=== PATIENT | female | born 1965 | race Caucasian/White ===

== ENCOUNTER 2018-08-01 15:02 | Emergency (ER) | payer MEDICARE, MEDICAID ==
[~2018-08-01] VITALS: Ht 154.9 cm; Wt 113.4 kg
[~2018-08-01 15:02] MED LIST: ABILIFY15 MG; ACID REDUCER75 MG PO; ADVAIR 100-501 EACH; ALBUTEROL NEB; AMBIEN 10 MG TA10 MG; AMBIEN 10 MG TA10 MG PO; BONIVA150 MG PO; BUPROPION XL150 MG PO; BUSPAR30 MG; BUSPAR30 MG PO; BUSPIRONE PO; CALCIUM + VIT1 EACH; CELEXA 20 MG TA20 MG PO; CELEXA40 MG; CELEXA40 MG PO; CIPRO500 MG PO; CIPROFLOXACIN500 M1 PO; CYMBALTA30 MG; DAYPRO600 MG PO; DILAUDID 2 MG TA2 MG PO; ENDOCET 5-3251 EACH PO; EVISTA; FLONASE; HYDROCODON-ACE1 EAC7 PO; IBUPROFEN 800800 M1 PO; KEFLEX500 MG PO; KEPPRA 500 MG500 M1 PO; KEPPRA XR750 MG PO; KEPPRA250 MG PO; LAMICTAL XR50 MG; LITHIUM CARBON300 M3 PO; LYRICA 75 MG CA75 MG; LYRICA100 MG; MIDODRINE HCL 55 M1 PO; MORPHINE SULFAT30 M4 PO; MS CONTIN 30 MG30 MG; NEURONTIN600 MG PO; NORCO 5-325 TA1 EACH PO; OPANA ER10 MG; ORADENT 0.1% DEN5 G1; OXCARBAZEPINE300 M1 PO; OXCARBAZEPINE300 MG; OXCARBAZEPINE600 MG; OXYCONTIN10 M1 PO; OYSTER SHELL C1 EA14 PO; PARAFON FORTE500 M2 PO; PERCOCET 10-321 EACH; PERCOCET 10-321 EACH PO; PERCOCET PO; PREDNISONE 20 M20 M1; PRILOSEC 20 MG20 MG; PROAIR HFA8.5 GM; RISPERDAL 1 MG T1 MG; RISPERDAL4 MG PO; ROXICODONE15 MG; SULFACETAMIDE 115 M1; TIZANIDINE HCL4 MG; TOPROL XL25 MG PO; TRIAMCINOLONE10 G1; TRILEPTAL 300300 MG; VENTOLIN17 GM; VISTARIL 25 MG25 M1; WELLBUTRIN SR150 MG PO; WELLBUTRIN XL150 M1 PO; WELLBUTRIN XL300 M1 PO; XANAX 0.25 MG0.25 MG PO; ZANTAC PO; ZOFRAN ODT4 MG PO
[2018-08-01] MEDS ORDERED: TOPROL XL25 MG PO (15:22)
[2018-08-01] MEDS ORDERED: CYMBALTA60 MG PO (15:23)
[2018-08-01] MEDS ORDERED: REMERON15 MG PO (15:24)
[2018-08-01] MEDS ORDERED: DUPIXENT300 MG/2 M PO (15:24)
[2018-08-01] MEDS ORDERED: TRIAMCINOLONE A80 G2 TOP (15:24)
[2018-08-01 16:06] LABS: ABSOLUTE EOSINOPHILS 0.1 thou/uL (0.0-0.7); ABSOLUTE MONOCYTES 0.4 thou/uL (0.0-1.2); ABSOLUTE NEUTROPHILS 3.9 thou/uL (1.6-8.1); BASOPHILS 0.7 %; EOSINOPHILS 2.1 %; LYMPHOCYTES 17.5 %; MCH 27.9 pg (26.0-34.0); MCHC 33.4 g/dL (28.0-37.0); MCV 83.7 fL (80.0-100.0); MONOCYTES 8.1 %; MPV 7.6 fl. (7.2-11.1); NUCLEATED RBCS 0 /100WBC; PLATELET COUNT* 235 thou/uL (150-400); POLYS 71.6 %; RBC 4.67 mil/uL (4.20-5.00); RDW-CV 14.2 % (10.5-14.5); WBC 5.5 thou/uL (4.0-11.0)
[2018-08-01 16:11] LABS: ANION GAP 10 mmol/L (7-16); BUN 13 mg/dL (7-18); CALCIUM 8.6 mg/dL (8.5-10.1); CHLORIDE 105 mmol/L (98-107); CO2 26 mmol/L (21-32); CREATININE 0.9 mg/dL (0.6-1.3); GLUCOSE 150 mg/dL (70-99); POTASSIUM 3.6 mmol/L (3.5-5.1); SODIUM 141 mmol/L (136-145)
[2018-08-01 16:23] LABS: ALBUMIN 3.2 g/dL (3.4-5.0); ALKALINE PHOSPHATASE 116 U/L (46-116); CK-MB MASS < 0.5 ng/mL (<0.5-3.6); LIPASE 77 U/L (73-393); MAGNESIUM 1.7 mg/dL (1.8-2.4); NT-PRO BRAIN NAT PEPTIDE 493 pg/mL (<300); SGOT 10 U/L (15-37); SGPT 14 U/L (30-65); TOTAL BILIRUBIN 0.5 mg/dL (<0.1-1.0); TOTAL PROTEIN 6.7 g/dL (6.4-8.2); TROPONIN-I LEVEL <0.06 ng/mL (<0.06)
[2018-08-01 16:40] LABS: APTT 27.2 Seconds (25.0-31.3)
[2018-08-01 20:41] VITALS: BP 139/80
--- NOTE | 2018-08-02 15:37 | EKG ---
[place] [address] ELECTROCARDIOGRAM REPORT Name: JAMI LUCERO Room: 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1965 Requested By: Denny Gutiérrez Order Number: [id number] Reading MD: Leonard Hallman Measurements Intervals Tiger Rate: 103 P: 56 OR: 197 QRS: -16 QRSD: 77 T: 17 QT: 330 QTc: 432 Interpretive Statements Sinus tachycardia Inferior infarct, old Significant Baseline wander noted Compared to ECG 08/15/2009 21:48:51 Sinus rhythm no longer present Myocardial infarct finding still present Electronically Signed On 08-02-2018 15:37:07 CDT by Leonard Hallman [email or web address] <ELECTRONICALLY SIGNED> By: Leonard Hallman MD, [facility] 08/02/18 1537 1516 1516 Leonard Hallman MD, FACC /EPI
--- NOTE | 2018-08-02 15:38 | EKG ---
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 : 1965 Requested By: Denny Gutiérrez Order Number: [id number] MD: Leonard Hallman Measurements Intervals [place] Rate: 85 P: 48 MT: 198 QRS: -13 QRSD: 77 T: -7 QT: 347 QTc: 413 Interpretive Statements Sinus rhythm Incomplete right bundle-branch block Inferior infarct, old Compared to ECG 08/15/2009 21:48:51 RSR' in V1 or V2 now present Myocardial infarct finding still present Electronically Signed On 08-02-2018 15:37:55 CDT by Leonard Hallman [email or web address] <ELECTRONICALLY SIGNED> By: Leonard Hallman MD, [facility] 08/02/18 1537 1614 1614 Leonard Hallman MD, [facility] /EPI
== END 2018-08-01 20:41 | disposition home or self-care (01) ==
LOC: M.ERS 15:02
PROVIDERS: Emergency Medicine
DX: R07.89 Other chest pain (principal); R79.1 Abnormal coagulation profile; J45.909 Unspecified asthma, uncomplicated; G89.29 Other chronic pain; F31.9 Bipolar disorder, unspecified; Z91.041 Radiographic dye allergy status; Z91.013 Allergy to seafood; Z88.8 Allergy status to other drugs, medicaments and biological substances; Z98.890 Other specified postprocedural states